=== PATIENT | male | born 1950 | race Hispanic/Latino ===

== ENCOUNTER → 2019-02-24 | Outpatient (CLI) | payer OTHER | END | disposition home or self-care (01) | LOC: SHCH 13:00 | PROVIDERS: ATTEND Internal Medicine Cardiovascular Disease | DX: I87.2 Venous insufficiency (chronic) (peripheral) (principal); I77.1 Stricture of artery | CPT/HCPCS: 93925; 93970 ==

== ENCOUNTER → 2019-03-10 | Outpatient (CLI) | payer OTHER | END | disposition home or self-care (01) | LOC: SHCH 12:52 | PROVIDERS: ATTEND Internal Medicine Cardiovascular Disease | DX: I11.9 Hypertensive heart disease without heart failure (principal); I25.118 Atherosclerotic heart disease of native coronary artery with other forms of angina pectoris | CPT/HCPCS: 93306 ==

== ENCOUNTER 2019-04-06 06:44 | Day surgery (SDC) | payer OTHER, MEDICARE ==
[2019-04-02 09:25] VITALS: BP 143/82
[2019-04-02 09:46] LABS: BASOPHILS % (AUTO) 0.8 % (0.0-5.0); EOSINOPHILS % (AUTO) 3.3 % (0.0-8.0); HEMATOCRIT 49.2 % (42-54); LYMPHOCYTES % (AUTO) 25.4 % (21.0-51.0); MEAN CORPUSCULAR HEMOGLOBIN 34.1 pg (27.0-33.0); MEAN CORPUSCULAR HGB CONC 34.4 g/dL (32.0-36.0); MEAN CORPUSCULAR VOLUME 99.2 fL (79-99); MONOCYTES % (AUTO) 5.6 % (3.0-13.0); NEUTROPHILS % (AUTO) 64.9 % (40.0-77.0); PLATELET COUNT (AUTO) 192 K/uL (130-400); RED BLOOD CELL COUNT(AUTO) 4.96 MIL/uL (4.50-6.20); RED CELL DISTRIBUTION WIDTH 13.5 % (11.0-15.5); WHITE BLOOD COUNT (AUTO) 8.6 K/uL (4.8-10.8)
[2019-04-02 09:48] LABS: APPEARANCE,URINE CLEAR (CLEAR); BILIRUBIN,URINE NEGATIVE (NEGATIVE); COLOR,URINE YELLOW (YELLOW); GLUCOSE, URINE (UA) NEGATIVE (NEGATIVE); KETONES,URINE NEGATIVE (NEGATIVE); LEUKOCYTE ESTERASE ,URINE NEGATIVE (NEGATIVE); NITRATE,URINE NEGATIVE (NEGATIVE); OCCULT BLOOD,URINE TRACE-INTACT (NEGATIVE); PH,URINE 5.5 (5.0-8.0); PROTEIN,URINE TRACE mg/dL (NEGATIVE); UROBILINOGEN,URINE 0.2 mg/dL (0.2-1.0)
[2019-04-02 09:58] LABS: INR 1.05 (0.85-1.15); PARTIAL THROMBOPLASTIN TIME 27.5 SEC (26.3-35.5)
[2019-04-02 10:04] LABS: BACTERIA,URINE Rare /HPF (None Seen); MUCUS,URINE Few LPF (None Seen); RBC,URINE 0-1 /HPF (0-1); SQUAMOUS EPITHELIAL CELL,UR Rare /HPF (0-2); WBC,URINE 0-1 /HPF (0-1)
[~2019-04-06] VITALS: Ht 165.1 cm; Wt 88.4 kg
[2019-04-06] VITALS (9 sets, daily range): BP systolic 92–125; BP diastolic 54–68
[~2019-04-06 06:44] MED LIST: AEC81 PO; ATOR20TA65 PO; DIPH25CA7 PO; FISH1CAP27 PO; LISI1TAB11 PO; SODIUM CHLORIDE 0.9% 500ML 500 ML IV SCH
[2019-04-06] MEDS ORDERED: SODIUM CHLORIDE 0.9% 1000ML 1,000 ML IV ONE (07:39)
[2019-04-06] MEDS ORDERED: LIDOCAINE HCL 2% 20ML ONE (09:49)
[2019-04-06] MEDS ORDERED: HEPARIN SODIUM 1000UNIT/ML 10ML VIAL ONE (09:49)
[2019-04-06] MEDS ORDERED: NITROGLYCERIN 5 MG/ML 10 ML VIAL IV ONE (09:49)
[2019-04-06] MEDS ORDERED: IOHEXOL 350 MG/ML 100ML INFUS..BTL IV ONE (09:49)
[2019-04-06] MEDS ORDERED: FENTANYL CITRATE PF 50 MCG/1 ML 2ML VIAL ONE (10:19)
[2019-04-06] MEDS ORDERED: MIDAZOLAM HCL 1 MG/ML 2ML VIAL ONE (10:19)
[2019-04-06] MEDS ORDERED: DEXTROSE 50%-WATER 50 ML DISP.SYRIN IV PRN (11:15)
[2019-04-06] MEDS ORDERED: GLUCAGON 1MG KIT 1 MG ML IM PRN (11:15)
[2019-04-06] MEDS ORDERED: METOPROLOL TARTRATE 1 MG/ML 5ML VIAL IV PRN (11:15)
[2019-04-06] MEDS ORDERED: NITROGLYCERIN 0.4 MG SL TAB SL PRN (11:15)
== END 2019-04-06 15:45 | disposition home or self-care (01) ==
LOC: DAH 06:44
PROVIDERS: ATTEND Internal Medicine Cardiovascular Disease
DX: I25.118 Atherosclerotic heart disease of native coronary artery with other forms of angina pectoris (principal); I70.213 Atherosclerosis of native arteries of extremities with intermittent claudication, bilateral legs; I10 Essential (primary) hypertension; E78.5 Hyperlipidemia, unspecified; F17.210 Nicotine dependence, cigarettes, uncomplicated; Z79.82 Long term (current) use of aspirin; Z79.899 Other long term (current) drug therapy; Z72.89 Other problems related to lifestyle; Z82.49 Family history of ischemic heart disease and other diseases of the circulatory system; Z83.3 Family history of diabetes mellitus; Z79.01 Long term (current) use of anticoagulants
CPT/HCPCS: 36415; 71045; 75630; 80048; 81001; 85025; 85610; 85730; 93005; 93458; A4606; C1894 ×2; J1644; J2250; J3010; J3490 ×2; J7030; Q9965 ×2; Q9967; 99156; 99157

== ENCOUNTER 2019-08-24 09:14 | Day surgery (SDC) | payer OTHER, MEDICARE ==
[2019-08-20 10:31] LABS: APPEARANCE,URINE Clear (CLEAR); BILIRUBIN,URINE Negative (NEGATIVE); COLOR,URINE Yellow (YELLOW); GLUCOSE, URINE (UA) Negative (NEGATIVE); KETONES,URINE Negative (NEGATIVE); LEUKOCYTE ESTERASE ,URINE Negative (NEGATIVE); NITRATE,URINE Negative (NEGATIVE); OCCULT BLOOD,URINE Negative (NEGATIVE); PROTEIN,URINE POS 1+ mg/dL (NEGATIVE); UROBILINOGEN,URINE 0.2 mg/dL (0.2-1.0)
[2019-08-20 10:31] LABS: BASOPHILS % (AUTO) 0.6 % (0.0-5.0); EOSINOPHILS % (AUTO) 3.3 % (0.0-8.0); HEMATOCRIT 49.8 % (42-54); LYMPHOCYTES % (AUTO) 33.9 % (21.0-51.0); MEAN CORPUSCULAR HEMOGLOBIN 32.5 pg (27.0-33.0); MEAN CORPUSCULAR HGB CONC 34.1 g/dL (32.0-36.0); MEAN CORPUSCULAR VOLUME 95.3 fL (79-99); MONOCYTES % (AUTO) 5.7 % (3.0-13.0); NEUTROPHILS % (AUTO) 56.5 % (40.0-77.0); NUCLEATED RED BLOOD CELLS 0.1 % (0.0-0.19); PLATELET COUNT (AUTO) 228 K/uL (130-400); RED BLOOD CELL COUNT(AUTO) 5.22 MIL/uL (4.50-6.20); RED CELL DISTRIBUTION WIDTH 14.8 % (11.0-15.5); WHITE BLOOD COUNT (AUTO) 6.8 K/uL (4.8-10.8)
[2019-08-20 10:36] LABS: CREATININE 0.9 mg/dL (0.5-1.5); POTASSIUM 4.9 mmol/L (3.5-5.1)
[2019-08-20 10:39] LABS: INR 1.02 (0.85-1.15); PARTIAL THROMBOPLASTIN TIME 25.1 SEC (26.3-35.5); PROTHROMBIN TIME 10.7 SEC (9.6-11.6)
[2019-08-20 10:43] VITALS: BP 136/80
[2019-08-20 10:53] LABS: RBC,URINE 0-1 /HPF (0-1); WBC,URINE None Seen /HPF (0-1)
[2019-08-20 10:54] LABS: BACTERIA,URINE None Seen /HPF (None Seen); MUCUS,URINE Moderate LPF (None Seen); SQUAMOUS EPITHELIAL CELL,UR 0-2 /HPF (0-2)
--- NOTE | 2019-08-21 09:41 | NUR ---
SPOKE WITH GRICEL ALMODOVAR, HE IS AWARE OF ABNORMAL LABS. NO FURTHER ORDERS AT THIS TIME. OK, TO PROCEED WITH PROCEDURE.
[~2019-08-24] VITALS: Ht 165.1 cm; Wt 87.2 kg
[2019-08-24] VITALS (25 sets, daily range): BP systolic 102–138; BP diastolic 60–90
[~2019-08-24 09:14] MED LIST changes: -AEC81 PO; +ASPI-1181 PO; +DIPH25CA53 PO; -DIPH25CA7 PO; -LISI1TAB11 PO; +LISI1TAB28 PO; +METO25TA6 PO; -SODIUM CHLORIDE 0.9% 500ML 500 ML IV SCH
[2019-08-24] MEDS ORDERED: SODIUM CHLORIDE 0.9% 1000ML 1,000 ML IV ONE (09:16)
[2019-08-24] MEDS ORDERED: VITAMIN D2 PO (10:17)
[2019-08-24] MEDS ORDERED: METO25TA6 PO (10:17)
[2019-08-24] MEDS ORDERED: MIDAZOLAM HCL 1 MG/ML 2ML VIAL ONE ×2 (11:25→11:49)
[2019-08-24] MEDS ORDERED: IODIXANOL 320 MG/ML 100 ML VIAL ONE (11:25)
[2019-08-24] MEDS ORDERED: HEPARIN SODIUM 1000UNIT/ML 10ML VIAL ONE (11:25)
[2019-08-24] MEDS ORDERED: NITROGLYCERIN 5 MG/ML 10 ML VIAL IV ONE (11:25)
[2019-08-24] MEDS ORDERED: FENTANYL CITRATE PF 50 MCG/1 ML 2ML VIAL ONE (11:26)
[2019-08-24] MEDS ORDERED: LIDOCAINE HCL 2% 20ML ONE (11:26)
[2019-08-24] MEDS ORDERED: SODIUM CHLORIDE 0.9% 1000ML 1,000 ML IV SCH (12:40)
[2019-08-24] MEDS ORDERED: CLOPIDOGREL BISULFATE 300 MG TAB ONE (12:41)
[2019-08-24] MEDS ORDERED: PROTAMINE SULFATE 10 MG/ML 25ML VIAL IV ONE (12:41)
[2019-08-24] MEDS ORDERED: GLUCAGON 1MG KIT 1 MG ML IM PRN (12:45)
[2019-08-24] MEDS ORDERED: METOPROLOL TARTRATE 1 MG/ML 5ML VIAL IV PRN (12:45)
[2019-08-24] MEDS ORDERED: NITROGLYCERIN 0.4 MG SL TAB SL PRN (12:45)
[2019-08-24] MEDS ORDERED: ACETAMINOPHEN-CODEINE 300/30MG TAB PO PRN (12:45)
[2019-08-24] MEDS ORDERED: DEXTROSE 50%-WATER 50 ML DISP.SYRIN IV PRN (12:45)
--- NOTE | 2019-08-24 13:10 | NUR ---
POST-PROCEDURE RECEIVED FROM SENIOR FINANCIAL S/P BILATERAL LOWER EXTREMITY RUNOFFS WITH ANGIOPLASTY AND RSFA STENT PLACEMENT BY MUKESH ARMENDARIZ RN. AWAKE IN NO ACUTE DISTRESS. DENIES PAIN. 8F SHEATH TO LEFT GROIN WITH HEPARIN VIA PRESSURE BAG. SITE SOFT, NON-TENDER. EDUCATED TO KEEP LEFT LEG STRAIGHT AND HEAD FLAT. PT VERBALIZED UNDERSTANDING. CONNECTED TO CONTINUOUS CARDIOPULMONARY MONITORING. SIDE RAILS UP X2, BED IN LOWEST POSITION, AND CALL LIGHT W/IN REACH.
--- NOTE | 2019-08-24 13:20 | NUR ---
REPORT BEDSIDE REPORT GIVEN TO PRAVEEN ROSE. 8F SHEATH TO LEFT FEMORAL W/O SIGNS OF BLEEDING;SITE SOFT, NON-TENDER.
[2019-08-24] MEDS ORDERED: ATROPINE SULFATE 0.1 MG/ML 10 ML SYG IVP ONE (13:28)
--- NOTE | 2019-08-24 17:45 | NUR ---
DISCHARGE PT DISCHARGED VIA WHEELCHAIR WITH BROTHER. PT STABLE. NO COMPLAINTS MADE. CATH SITE TO LEFT GROIN REMAINS SOFT, DRESSING DRY AND INTACT, NO OOZING NO HEMATOMA NOTED. DISCHARGE INSTRUCTIONS GIVEN TO PT AND BORTHER, VERBALIZED UNDERSTANDING.
[2019-08-25] MEDS ORDERED: CLOPIDOGREL BISULFATE 75 MG TAB PO SCH (09:00)
== END 2019-08-24 17:45 | disposition home or self-care (01) ==
LOC: DAH 09:14
PROVIDERS: ATTEND Internal Medicine Cardiovascular Disease
DX: I70.211 Atherosclerosis of native arteries of extremities with intermittent claudication, right leg (principal); I10 Essential (primary) hypertension; E78.5 Hyperlipidemia, unspecified; F17.210 Nicotine dependence, cigarettes, uncomplicated; Z95.1 Presence of aortocoronary bypass graft; Z79.2 Long term (current) use of antibiotics; Z79.899 Other long term (current) drug therapy; Z72.89 Other problems related to lifestyle; I25.118 Atherosclerotic heart disease of native coronary artery with other forms of angina pectoris; Z82.49 Family history of ischemic heart disease and other diseases of the circulatory system; Z83.3 Family history of diabetes mellitus
CPT/HCPCS: 36415; 37226; 71045; 75716; 80048; 81001; 85025; 85610; 85730; 93005; A4215; A4216; A4221; A4222; A4223 ×3; A4606; A4657; A4663; A6260; A6402; C1725 ×2; C1769 ×2; C1874 ×2; C1887; C1893; C1894 ×2; J1644 ×2; J2250 ×2; J2720; J3010; J3490 ×2; J7030; Q9967; 99156; 99157; J0461

== ENCOUNTER 2020-09-10 11:01 | Inpatient (IN) | payer OTHER, MEDICARE ==
[~2020-09-10] VITALS: Ht 160 cm; Wt 96.6 kg
[~2020-09-10 11:01] MED LIST changes: -ASPI-1181 PO; +ASPI-1443 PO; -LISI1TAB28 PO; +LISI1TAB51 PO; +VITAMIN D2 PO
[2020-09-10 11:36] LABS: BASOPHILS % (AUTO) 0.4 % (0.0-5.0); EOSINOPHILS % (AUTO) 0.2 % (0.0-8.0); HEMATOCRIT 46.9 % (42-54); LYMPHOCYTES % (AUTO) 9.9 % (21.0-51.0); MEAN CORPUSCULAR HEMOGLOBIN 33.1 pg (27.0-33.0); MEAN CORPUSCULAR HGB CONC 34.3 g/dL (32.0-36.0); MEAN CORPUSCULAR VOLUME 96.5 fL (79-99); MONOCYTES % (AUTO) 3.7 % (3.0-13.0); NEUTROPHILS % (AUTO) 85.3 % (40.0-77.0); PLATELET COUNT (AUTO) 87 K/uL (130-400); RED BLOOD CELL COUNT(AUTO) 4.86 MIL/uL (4.50-6.20); RED CELL DISTRIBUTION WIDTH 13.6 % (11.0-15.5)
[2020-09-10 11:39] LABS: INR 1.23 (0.85-1.15); PROTHROMBIN TIME 12.9 SEC (9.6-11.6)
[2020-09-10 11:40] LABS: PARTIAL THROMBOPLASTIN TIME 28.5 SEC (26.3-35.5)
[2020-09-10 12:06] LABS: ALBUMIN 3.6 g/dL (3.5-5.0); BILIRUBIN,TOTAL 0.8 mg/dL (0.2-1.0); CREATININE 1.7 mg/dL (0.5-1.5); POTASSIUM 4.1 mmol/L (3.5-5.1); TOTAL PROTEIN, SERUM 7.6 g/dL (6.0-8.3); TROPONIN I 0.09 ng/mL (0.00-0.06)
[2020-09-10] MEDS ORDERED: ZOSYN 3.375GM+NS 50ML 50 ML IV ONE (12:23)
[2020-09-10] MEDS ORDERED: 0.9%NACL 1000ML 3,000 ML IV ONE (12:23)
[2020-09-10 12:30] LABS: ABG BASE EXCESS -4.4 mmol/L (-2.0-3.0); ABG HCO3 17.5 mmol/L (21.0-28.0); ABG OXYGEN SATURATION 96.8 % (95.0-99.0); ABG PCO2 25 mmHg (35-48)
[2020-09-10 13:48] LABS: APPEARANCE,URINE Cloudy (CLEAR); BILIRUBIN,URINE Small (NEGATIVE); COLOR,URINE Dark Yellow (YELLOW); GLUCOSE, URINE (UA) Negative (NEGATIVE); KETONES,URINE Negative (NEGATIVE); LEUKOCYTE ESTERASE ,URINE Negative (NEGATIVE); NITRATE,URINE Negative (NEGATIVE); OCCULT BLOOD,URINE Moderate (NEGATIVE); PROTEIN,URINE 300 mg/dL (NEGATIVE)
[2020-09-10 14:01] LABS: BACTERIA,URINE Moderate /HPF (None Seen); WBC,URINE None Seen /HPF (0-1)
[2020-09-10 14:02] LABS: HYALINE CASTS, URINE 0-1 /LPF (0-1 /LPF); MUCUS,URINE Moderate LPF (None Seen); OTHER CASTS, URINE WBC CASTS 1+ /LPF (None Seen)
[2020-09-10] MEDS ORDERED: DEXTROSE 50%-WATER 50 ML DISP.SYRIN IV PRN (15:00)
[2020-09-10] MEDS: ZOSYN 3.375GM+NS 50ML 50 ML IV SCH ×2 (15:00→23:00)
[2020-09-10] MEDS ORDERED: HYDRALAZINE 20MG/ML VIAL IV PRN (15:00)
[2020-09-10] MEDS: LACTATED RINGERS 1000ML 1,000 ML IV SCH (15:00)
[2020-09-10] MEDS ORDERED: MAGNESIUM 2GM PREMIX 50ML 50 ML IV PRN (15:00)
[2020-09-10] MEDS ORDERED: GLUCAGON 1MG KIT 1 MG ML IM PRN (15:00)
[2020-09-10] MEDS ORDERED: ONDANSETRON 4MG INJ IVP PRN (15:00)
[2020-09-10] MEDS ORDERED: IPRATROPIUM 0.5 MG/2.5 ML INH IH PRN (15:15)
[2020-09-10 15:52] LABS: ABG BASE EXCESS -5.7 mmol/L (-2.0-3.0); ABG HCO3 18.3 mmol/L (21.0-28.0); ABG OXYGEN SATURATION 99.9 % (95.0-99.0); ABG PCO2 32 mmHg (35-48)
[2020-09-11] MEDS: LACTATED RINGERS 1000ML 1,000 ML IV SCH ×3 (01:00→21:00)
[2020-09-11 04:12] LABS: ABG BASE EXCESS -5.9 mmol/L (-2.0-3.0); ABG HCO3 17.2 mmol/L (21.0-28.0); ABG OXYGEN SATURATION 99.7 % (95.0-99.0); ABG PCO2 28 mmHg (35-48)
[2020-09-11 04:39] LABS: BASOPHILS % (AUTO) 0.3 % (0.0-5.0); EOSINOPHILS % (AUTO) 0.1 % (0.0-8.0); HEMATOCRIT 40.1 % (42-54); LYMPHOCYTES % (AUTO) 10.4 % (21.0-51.0); MEAN CORPUSCULAR HEMOGLOBIN 32.8 pg (27.0-33.0); MEAN CORPUSCULAR HGB CONC 33.9 g/dL (32.0-36.0); MEAN CORPUSCULAR VOLUME 96.6 fL (79-99); NEUTROPHILS % (AUTO) 85.7 % (40.0-77.0); PLATELET COUNT (AUTO) 65 K/uL (130-400); RED BLOOD CELL COUNT(AUTO) 4.15 MIL/uL (4.50-6.20); WHITE BLOOD COUNT (AUTO) 10.9 K/uL (4.8-10.8)
[2020-09-11 05:10] LABS: B-TYPE NATRIURETIC PEPTIDE 504 pg/mL (0-100)
[2020-09-11 05:12] LABS: ALBUMIN 2.9 g/dL (3.5-5.0); BILIRUBIN,TOTAL 0.7 mg/dL (0.2-1.0); CREATININE 1.7 mg/dL (0.5-1.5); MAGNESIUM 1.9 mg/dL (1.80-2.40); PHOSPHORUS 3.5 mg/dL (2.5-4.9); TOTAL PROTEIN, SERUM 6.1 g/dL (6.0-8.3)
[2020-09-11 05:35] LABS: CRP QUANTITATIVE 179.3 mg/L (0.00-9.0)
[2020-09-11] MEDS: ZOSYN 3.375GM+NS 50ML 50 ML IV SCH ×3 (07:00→23:00)
[2020-09-11] MEDS ORDERED: DEXAMETHASONE SOD PHOSPHATE 10MG/ML 1ML VIAL ONE (08:21)
[2020-09-11] MEDS ORDERED: FAMOTIDINE 20MG VIAL IV ONE (08:21)
[2020-09-11] MEDS ORDERED: ENOXAPARIN SODIUM 40 MG/0.4 ML SYRINGE SQ ONE (08:22)
[2020-09-11] MEDS ORDERED: ZOSYN 3.375GM+NS 50ML 50 ML IV ONE ×3 (08:22→23:57)
[2020-09-11] MEDS: ENOXAPARIN SODIUM 40 MG/0.4 ML SYRINGE SQ SCH (09:00)
[2020-09-11] MEDS: DEXAMETHASONE SOD PHOSPHATE 4 MG/ML 1ML VIAL IVP SCH (09:00)
[2020-09-11] MEDS: FAMOTIDINE 20MG TAB PO SCH (09:00)
[2020-09-11] MEDS ORDERED: LACTATED RINGERS 1000ML 1,000 ML IV ONE (11:55)
[2020-09-11] MEDS ORDERED: VANCOMYCIN PROTOCOL PER PHARMACY IV SCH (17:15)
[2020-09-11] MEDS: VANCOMYCIN 1G 1.25 GM in 0.9% NACL 250ML 250 ML IV SCH (18:00)
[2020-09-11] MEDS ORDERED: COMPOUND IV REFRIGERATED 1 EACH IVSOLN MISC PRN (18:00)
[2020-09-12 03:35] LABS: ABG BASE EXCESS -4.2 mmol/L (-2.0-3.0); ABG HCO3 19.2 mmol/L (21.0-28.0); ABG OXYGEN SATURATION 97.1 % (95.0-99.0); ABG PCO2 31 mmHg (35-48)
[2020-09-12 05:18] LABS: BASOPHILS % (AUTO) 0.3 % (0.0-5.0); EOSINOPHILS % (AUTO) 0.1 % (0.0-8.0); HEMATOCRIT 41.1 % (42-54); LYMPHOCYTES % (AUTO) 9.1 % (21.0-51.0); MEAN CORPUSCULAR HEMOGLOBIN 32.3 pg (27.0-33.0); MEAN CORPUSCULAR HGB CONC 33.3 g/dL (32.0-36.0); MEAN CORPUSCULAR VOLUME 96.9 fL (79-99); MONOCYTES % (AUTO) 2.9 % (3.0-13.0); NEUTROPHILS % (AUTO) 86.6 % (40.0-77.0); PLATELET COUNT (AUTO) 83 K/uL (130-400); RED BLOOD CELL COUNT(AUTO) 4.24 MIL/uL (4.50-6.20); RED CELL DISTRIBUTION WIDTH 14.1 % (11.0-15.5); WHITE BLOOD COUNT (AUTO) 11.8 K/uL (4.8-10.8)
[2020-09-12 05:59] LABS: ALBUMIN 2.9 g/dL (3.5-5.0); BILIRUBIN,TOTAL 0.7 mg/dL (0.2-1.0); CREATININE 1.8 mg/dL (0.5-1.5); MAGNESIUM 2.5 mg/dL (1.80-2.40); PHOSPHORUS 3.1 mg/dL (2.5-4.9); POTASSIUM 4.4 mmol/L (3.5-5.1)
[2020-09-12] MEDS: ZOSYN 3.375GM+NS 50ML 50 ML IV SCH ×3 (07:00→23:00)
[2020-09-12] MEDS: LACTATED RINGERS 1000ML 1,000 ML IV SCH ×2 (07:00→17:00)
[2020-09-12] MEDS ORDERED: ENOXAPARIN SODIUM 60 MG/0.6 ML SQ ONE (08:55)
[2020-09-12] MEDS ORDERED: FAMOTIDINE 20MG TAB ONE (08:56)
[2020-09-12] MEDS ORDERED: LACTATED RINGERS 1000ML 1,000 ML IV ONE (08:56)
[2020-09-12] MEDS ORDERED: ZOSYN 3.375GM+NS 50ML 50 ML IV ONE ×3 (08:56→23:00)
[2020-09-12] MEDS ORDERED: DEXAMETHASONE SOD PHOSPHATE 10MG/ML 1ML VIAL ONE (08:56)
[2020-09-12] MEDS: ENOXAPARIN SODIUM 40 MG/0.4 ML SYRINGE SQ SCH (09:00)
[2020-09-12] MEDS: FAMOTIDINE 20MG TAB PO SCH (09:00)
[2020-09-12] MEDS: DEXAMETHASONE SOD PHOSPHATE 4 MG/ML 1ML VIAL IVP SCH (09:00)
[2020-09-12] MEDS: VANCOMYCIN 1G 1.25 GM in 0.9% NACL 250ML 250 ML IV SCH (18:00)
[2020-09-12 23:40] VITALS: BP 110/68
[2020-09-12] MEDS ORDERED: DOCU100T PO (23:55)
[2020-09-12] MEDS ORDERED: CLOP75TA32 PO (23:55)
[2020-09-12] MEDS ORDERED: VITA1CAP85 PO (23:55)
[2020-09-13] MEDS: LACTATED RINGERS 1000ML 1,000 ML IV SCH ×3 (02:05→22:46)
[2020-09-13 04:00] VITALS: BP 95/60
[2020-09-13 04:58] LABS: HEMATOCRIT 36.2 % (42-54); MEAN CORPUSCULAR HEMOGLOBIN 32.8 pg (27.0-33.0); MEAN CORPUSCULAR VOLUME 96.5 fL (79-99); RED BLOOD CELL COUNT(AUTO) 3.75 MIL/uL (4.50-6.20); RED CELL DISTRIBUTION WIDTH 13.8 % (11.0-15.5); WHITE BLOOD COUNT (AUTO) 12.8 K/uL (4.8-10.8)
[2020-09-13 05:26] LABS: ALBUMIN 2.4 g/dL (3.5-5.0); BILIRUBIN,DIRECT 0.2 mg/dL (0.0-0.3); BILIRUBIN,TOTAL 0.6 mg/dL (0.2-1.0); CREATININE 1.5 mg/dL (0.5-1.5); MAGNESIUM 2.5 mg/dL (1.80-2.40); PHOSPHORUS 3.2 mg/dL (2.5-4.9); POTASSIUM 4.3 mmol/L (3.5-5.1); TOTAL PROTEIN, SERUM 5.5 g/dL (6.0-8.3)
[2020-09-13] MEDS: ZOSYN 3.375GM+NS 50ML 50 ML IV SCH ×3 (05:47→22:46)
[2020-09-13 07:30] VITALS: BP 96/65
[2020-09-13 11:00] VITALS: BP 116/65
[2020-09-13] MEDS: FAMOTIDINE 20MG TAB PO SCH (11:27)
[2020-09-13] MEDS: DEXAMETHASONE SOD PHOSPHATE 4 MG/ML 1ML VIAL IVP SCH (11:29)
[2020-09-13] MEDS: LEVOFLOXACIN 750 MG/D5W 150 ML 150 ML IV SCH (11:29)
[2020-09-13] MEDS: ENOXAPARIN SODIUM 40 MG/0.4 ML SYRINGE SQ SCH (14:21)
[2020-09-13 16:00] VITALS: BP 121/67
[2020-09-13] MEDS: VANCOMYCIN 1G 1.25 GM in 0.9% NACL 250ML 250 ML IV SCH (18:51)
[2020-09-13 20:00] VITALS: BP 119/61
[2020-09-13] MEDS ORDERED: VITAMIN B COMPLEX 1 CAPSULE PO SCH (21:45)
[2020-09-14] VITALS (7 sets, daily range): BP systolic 110–133; BP diastolic 69–78
[2020-09-14] MEDS: ZOSYN 3.375GM+NS 50ML 50 ML IV SCH ×2 (06:11→14:08)
[2020-09-14 07:16] LABS: HEMATOCRIT 36.7 % (42-54); MEAN CORPUSCULAR HEMOGLOBIN 32.6 pg (27.0-33.0); MEAN CORPUSCULAR HGB CONC 34.3 g/dL (32.0-36.0); MEAN CORPUSCULAR VOLUME 94.8 fL (79-99); RED BLOOD CELL COUNT(AUTO) 3.87 MIL/uL (4.50-6.20); RED CELL DISTRIBUTION WIDTH 13.6 % (11.0-15.5); WHITE BLOOD COUNT (AUTO) 12.3 K/uL (4.8-10.8)
[2020-09-14 07:30] LABS: CREATININE 1.2 mg/dL (0.5-1.5); POTASSIUM 4.1 mmol/L (3.5-5.1)
[2020-09-14] MEDS: FAMOTIDINE 20MG TAB PO SCH (08:29)
[2020-09-14] MEDS: FISH OIL 1000 MG/CAP PO SCH (08:29)
[2020-09-14] MEDS: ASPIRIN 81 MG EC TAB PO SCH (08:29)
[2020-09-14] MEDS: DEXAMETHASONE SOD PHOSPHATE 4 MG/ML 1ML VIAL IVP SCH (08:30)
[2020-09-14] MEDS: CLOPIDOGREL 75MG TAB PO SCH (08:30)
[2020-09-14] MEDS: METOPROLOL TARTRATE 25 MG TAB PO SCH ×2 (08:31→21:09)
[2020-09-14] MEDS: LEVOFLOXACIN 750 MG/D5W 150 ML 150 ML IV SCH (08:34)
[2020-09-14] MEDS ORDERED: FUROSEMIDE 20MG VIAL ONE (11:45)
[2020-09-14] MEDS: FUROSEMIDE 20MG VIAL IV SCH (11:45)
[2020-09-14] MEDS: ENOXAPARIN SODIUM 40 MG/0.4 ML SYRINGE SQ SCH (11:51)
[2020-09-14] MEDS ORDERED: ATORVASTATIN 20 MG TABLET PO SCH (21:00)
[2020-09-15 00:15] VITALS: BP 121/76
[2020-09-15] MEDS: ZOSYN 3.375GM+NS 50ML 50 ML IV SCH ×2 (00:29→05:42)
[2020-09-15 03:37] VITALS: BP 113/65
[2020-09-15 04:01] LABS: HEMATOCRIT 36.2 % (42-54); MEAN CORPUSCULAR HEMOGLOBIN 32.9 pg (27.0-33.0); MEAN CORPUSCULAR HGB CONC 34.5 g/dL (32.0-36.0); MEAN CORPUSCULAR VOLUME 95.3 fL (79-99); RED BLOOD CELL COUNT(AUTO) 3.8 MIL/uL (4.50-6.20); RED CELL DISTRIBUTION WIDTH 13.5 % (11.0-15.5); WHITE BLOOD COUNT (AUTO) 11.3 K/uL (4.8-10.8)
[2020-09-15 04:10] LABS: CREATININE 1.2 mg/dL (0.5-1.5); POTASSIUM 3.9 mmol/L (3.5-5.1)
[2020-09-15 07:49] VITALS: BP 117/72
[2020-09-15] MEDS: ENOXAPARIN SODIUM 40 MG/0.4 ML SYRINGE SQ SCH (09:00)
[2020-09-15] MEDS ORDERED: LEVO500T90 PO (09:38)
[2020-09-15] MEDS: LEVOFLOXACIN 750 MG/D5W 150 ML 150 ML IV SCH (10:37)
[2020-09-15] MEDS: FISH OIL 1000 MG/CAP PO SCH (10:43)
[2020-09-15] MEDS: FAMOTIDINE 20MG TAB PO SCH (10:43)
[2020-09-15] MEDS: DEXAMETHASONE SOD PHOSPHATE 4 MG/ML 1ML VIAL IVP SCH (10:43)
[2020-09-15] MEDS: CLOPIDOGREL 75MG TAB PO SCH (10:43)
[2020-09-15] MEDS: ASPIRIN 81 MG EC TAB PO SCH (10:43)
[2020-09-15] MEDS: METOPROLOL TARTRATE 25 MG TAB PO SCH (10:43)
[2020-09-15] MEDS: FUROSEMIDE 20MG VIAL IV SCH (10:51)
[2020-09-15 11:12] VITALS: BP 106/55
== END 2020-09-15 13:30 | disposition home or self-care (01) | DRG 871 ==
LOC: EDH 11:01 → OBSVTOIN 13:27 → EDHIP 13:27 → 4DH 09-12 23:13
PROVIDERS: ADMIT Internal Medicine; ATTEND Internal Medicine
PROC: 5A09357 Assistance with Respiratory Ventilation, Less than 24 Consecutive Hours, Continuous Positive Airway Pressure (ICD-10-PCS; principal; 2020-09-10)
PROC: 5A09357 Assistance with Respiratory Ventilation, Less than 24 Consecutive Hours, Continuous Positive Airway Pressure (ICD-10-PCS; 2020-09-11)
PROC: 5A09357 Assistance with Respiratory Ventilation, Less than 24 Consecutive Hours, Continuous Positive Airway Pressure (ICD-10-PCS; 2020-09-12)
PROC: 5A09357 Assistance with Respiratory Ventilation, Less than 24 Consecutive Hours, Continuous Positive Airway Pressure (ICD-10-PCS; 2020-09-13)
PROC: 5A09357 Assistance with Respiratory Ventilation, Less than 24 Consecutive Hours, Continuous Positive Airway Pressure (ICD-10-PCS; 2020-09-14)
PROC: 5A09357 Assistance with Respiratory Ventilation, Less than 24 Consecutive Hours, Continuous Positive Airway Pressure (ICD-10-PCS; 2020-09-15)
DX: A41.9 Sepsis, unspecified organism (principal); J96.01 Acute respiratory failure with hypoxia; J18.9 Pneumonia, unspecified organism; E87.2 Acidosis; N17.9 Acute kidney failure, unspecified; M62.82 Rhabdomyolysis; D69.6 Thrombocytopenia, unspecified; I10 Essential (primary) hypertension; I25.10 Atherosclerotic heart disease of native coronary artery without angina pectoris; Z20.828 Contact with and (suspected) exposure to other viral communicable diseases; F17.200 Nicotine dependence, unspecified, uncomplicated; Z60.2 Problems related to living alone; E66.9 Obesity, unspecified; Z68.37 Body mass index [BMI] 37.0-37.9, adult; Z95.1 Presence of aortocoronary bypass graft; Z79.02 Long term (current) use of antithrombotics/antiplatelets; Z79.899 Other long term (current) drug therapy
CPT/HCPCS: 36415; 36600; 71045; 76700; 80048; 80053; 80076; 81001; 82550; 82803; 82948; 83605; 83735; 83874; 83880; 84100; 84145; 84484; 85025; 85027; 85378; 85610; 85730; 86140; 86900; 86901; 87040; 87088; 87426; 87804; 93005; 93306; 93356; 93970; 94660; 97039; 99291; G0378; J1100; J1650; J1940; J1956; J2543; J3370; J3490; J7030; J7050; J7120; U0003

== ENCOUNTER → 2024-08-24 | Outpatient (CLI) | payer OTHER, MEDICARE ==
[~2024-08-24] MED LIST changes: +CLOP75TA32 PO; -DIPH25CA53 PO; +DOCU100T PO; +LEVO-70 PO; +VITA1CAP85 PO
[2024-08-24 12:15] LABS: POTASSIUM 4.9 mmol/L (3.5-5.1)
== END | disposition home or self-care (01) ==
LOC: LAB 10:17
PROVIDERS: ATTEND Internal Medicine Cardiovascular Disease
DX: R07.89 Other chest pain (principal); I25.10 Atherosclerotic heart disease of native coronary artery without angina pectoris
CPT/HCPCS: 36415; 80048

== ENCOUNTER → 2024-11-17 | Outpatient (CLI) | payer OTHER, MEDICARE ==
[~2024-11-17] MED LIST changes: +IOHEXOL 350 MG/ML 100ML INFUS..BTL IV ONE
--- NOTE | 2024-11-17 22:15 | HMCIMG ---
CT CARDIAC ANGIO W/CONT. CCTA HISTORY: Chest pain COMPARISON: None TECHNIQUE: Multiple sequential axial images of the chest were obtained along with the CT angiogram of the chest study. Patient was given 100 cc of Omnipaque through intravenous route. FINDINGS: There is no evidence of pulmonary nodule or parenchymal disease. No pleural effusion or pericardial effusion is seen. There is no evidence of pneumothorax. There are normal size mediastinal and hilar lymph nodes. The heart is borderline enlarged. Coronary arterial calcifications are seen. Degenerative changes of the thoracolumbar spine are present. IMPRESSION: 1. No evidence of pulmonary nodule or effusion is seen. Please see CT angiogram report of coronary arteries.
--- NOTE | 2024-11-19 17:09 | CARDIOLOGY ---
RAD REPORT: [facility] CT ANGIO RADIOLOGY REPORT: CORONARY CT ANGIOGRAPHY DATE: Nov 19, 2024 QUALITY: Excellent CLINICAL HISTORY AND INDICATION: [ coronary artery bypass graft patency ] TECHNIQUE: After obtaining a preliminary nurse examiner image, contrast imaging performed on an [employer] [id number] scanner. A dedicated, limited window, coronary imaging protocol was used, with single breath-hold, retrospective ECG gating, and automated arrhythmia rejection. 100 cc of low osmolar contrast agent: Omnipaque 350 was delivered via a 18-gauge IV catheter in the right antecubital fossa, using a power injector and followed by 60 cc of normal saline bolus as a chaser. Collimated images were reformatted at 0.5 mm intervals, and sent to an offline independent workstation for interpretation, using 3D anatomic reconstructions: Curved multiplanar reconstructions, maximum intensity projections, and multiplanar imaging. No metoprolol was administered prior to scanning due to low baseline heart rate. 0.4 mg SL nitroglycerin was given. CORONARY ARTERY DESCRIPTIONS: The coronary arteries arise in normal position. Left main coronary artery: Normal caliber vessel that bifurcates into the LAD and LCx. Severe diffuse left main stenosis. Left anterior descending coronary artery: Normal caliber vessel and gives rise to diagonal and septal branches. Proximal to mid LAD is heavily calcified with 70-80% stenosis. Due to calcium blooming artifact luminal stenosis may be overestimated. Left circumflex coronary artery: Normal caliber, nondominant and gives rise to two OM branches. There is mixed plaque in the proximal LCx with 20-30% stenosis. Right coronary artery: Large, dominant vessel giving rise to the PL and PDA branches. SECRETARY OFFICE CLERK of both the ostial RCA (heavily calcified). There is a subtotal occlusion in the distal RCA (just prior to bifurcation of PL and PDA) with distal filling consistent with left to right collaterals. Atretic BAUM to LAD. Occluded SVG to OM2. Occluded SVG to PDA. Recommend left heart catheterization. Thoracic Aorta: Normal diameter. Daria Aceves MD Cardiovascular Disease [facility] DARIA ACEVES MD Nov 19, 2024 17:09
== END | disposition home or self-care (01) ==
LOC: RAH 07:47
PROVIDERS: ATTEND Internal Medicine Cardiovascular Disease
DX: I25.10 Atherosclerotic heart disease of native coronary artery without angina pectoris (principal); R07.9 Chest pain, unspecified; R06.9 Unspecified abnormalities of breathing; M47.815 Spondylosis without myelopathy or radiculopathy, thoracolumbar region
CPT/HCPCS: 75574; Q9967

== ENCOUNTER → 2025-09-14 | Outpatient (CLI) | payer OTHER, MEDICARE ==
[~2025-09-14] MED LIST changes: -IOHEXOL 350 MG/ML 100ML INFUS..BTL IV ONE
--- NOTE | 2025-09-16 01:37 | HMCIMG ---
EXAM: MR Lumbar Spine Without Intravenous Contrast. CLINICAL HISTORY: Radiculopathy, lumbosacral region. TECHNIQUE: Magnetic resonance images of the lumbar spine in multiple planes. CONTRAST: None. COMPARISON: None. FINDINGS: For this examination, spinal levels were labeled assuming five [id number], lumbar-type vertebrae, with the inferior labeled L5. No acute fracture. Loss of lordotic curvature. Minimal retrolisthesis of L2 over L3, L3 over L4, and L4 over L5. Minimal anterolisthesis of L5 over S1. Multilevel disc height reduction, disc desiccation, endplate irregularities, Schmorl's nodes, facet arthropathy, and ligamentum flavum hypertrophy. Normal vertebral body heights. Modic changes at endplates. Normal marrow signal of the rest of the vertebrae. Conus medullaris terminates at the L1 level. No abnormal epidural masses. The surrounding soft tissues are unremarkable. A T2 hypointense 1.6cm cyst in the posterior cortex of the left kidney. Individual spinal levels are described as follows: T12-L1: 1 to 2 mm diffuse disc bulge. Facet arthropathy indenting over the dorsolateral thecal sac. No significant neural foraminal, lateral recess,s or spinal canal stenosis. Tiny perineural cyst along the left exiting nerve. L1-L2: 4 to 5 mm asymmetric rightwards disc osteophyte complex. Mild spinal canal stenosis with subtle impingement over the ventral junction of conus medullaris and cauda equina. Severe right and moderate left neural foraminal and lateral recess stenosis. Significant impingement over bilateral descending traversing and exiting nerves, right more than left. L2-L3: 3 to 4 mm asymmetric left towards the disc osteophyte complex. Mild spinal canal stenosis. Severe left and moderate to severe right neural foraminal and lateral recess stenosis. Significant impingement over bilateral descending traversing and exiting nerves, with the left affected more than the right. L3-L4: 6 to 7 mm asymmetric leftward disc osteophyte complex. Mild spinal canal stenosis. Severe left and moderate to severe right neural foraminal and lateral recess stenosis. Significant impingement over bilateral descending traversing and exiting nerves, the left is affected more than the right. L4-L5: 3 to 4 mm posterocentral predominant diffuse disc bulge. Synovial cyst along the left facet. Moderate spinal canal stenosis with mild crowding of cauda equina fibers. Moderate to severe bilateral neural foraminal and lateral recess stenosis. Significant impingement of bilateral descending traversing and exiting nerves. L5-S1: 2 to 3 mm unroofing of the disc. Mild spinal canal stenosis. Severe bilateral neural foraminal and lateral recess stenosis causing significant impingement of her bilateral descending traversing and exiting nerves. IMPRESSION: Loss of lumbar lordosis. Minimal retrolisthesis of L2 over L3, L3 over L4, and L4 over L5. Minimal anterolisthesis of L5 over S1. Discogenic and spondylotic changes as detailed above. Mild spinal canal stenosis at L1-L2 to L3-L4 levels and L5-S1. Moderate spinal canal stenosis with mild crowding of the cauda equina fibers at L4-L5. Multilevel nerve impingement from L1-L2 to L5-S1. Tiny perineural cyst along the left exiting nerve at T12-L1. Synovial cyst along the left facet of L4-L5. /[place]
== END | disposition home or self-care (01) ==
LOC: RAH 11:19
PROVIDERS: ATTEND Family Medicine
DX: M47.27 Other spondylosis with radiculopathy, lumbosacral region (principal); M47.816 Spondylosis without myelopathy or radiculopathy, lumbar region; R26.9 Unspecified abnormalities of gait and mobility; M40.46 Postural lordosis, lumbar region; M48.07 Spinal stenosis, lumbosacral region; G96.191 Perineural cyst; M47.817 Spondylosis without myelopathy or radiculopathy, lumbosacral region; M71.38 Other bursal cyst, other site; M25.78 Osteophyte, vertebrae; M51.46 Schmorl's nodes, lumbar region; M51.35 Other intervertebral disc degeneration, thoracolumbar region; M51.16 Intervertebral disc disorders with radiculopathy, lumbar region
CPT/HCPCS: 72148